=== PATIENT | female | born 1955 | race Caucasian/White ===

== ENCOUNTER → 2017-06-14 | Outpatient (CLI) | payer BC ==
[~2017-06-14] MED LIST: ADIPEX-P37.5 M1 PO; ASPIRIN E.C. 8181 MG PO; COLESTID 1GM1 G PO; MOBIC15 MG PO; MOTRIN 200200 MG/TAB PO; MULTIVITAMIN1 TA1 PO; NAPROXEN 3375 MG/TAB; NO HOME MEDICATIONS; NORCO 325 MG-7.1 TAB PO; SYNTHROID0.05 MG/TA PO; VICODIN 5/5001 UDTAB PO
== END ==
LOC: MC.RAD 10:55
DX: Z12.31 Encounter for screening mammogram for malignant neoplasm of breast (principal)

== ENCOUNTER 2018-02-24 12:56 | Inpatient (IN) | payer BC ==
[~2018-02-24] VITALS: Ht 165.1 cm; Wt 119.0 kg
[2018-04-29] VITALS (11 sets, daily range): BP systolic 96–135; BP diastolic 52–84; PULSE 70–86; TEMP 98
[2018-04-30 03:40] VITALS: BP 100/48; PULSE 60; TEMP 97.5
[2018-04-30 07:51] VITALS: BP 112/54; PULSE 65; TEMP 97.8
[2018-04-30 11:00] VITALS: BP 123/59; PULSE 74; TEMP 97.9
[2018-04-30] MEDS ORDERED: XARELTO10 MG PO (11:23)
[2018-04-30] MEDS ORDERED: NORCO 325 MG-7.1 TAB PO (11:24)
[2018-04-30] MEDS ORDERED: ROXICODONE 55 MG/TAB PO (11:25)
== END 2018-04-30 14:20 | disposition home or self-care (01) | DRG 470 ==
LOC: JCC 04-29 07:30
PROVIDERS: Orthopaedic Surgery
PROC: 0SRD0J9 Replacement of Left Knee Joint with Synthetic Substitute, Cemented, Open Approach (ICD-10-PCS; principal; 2018-04-29 13:45)
DX: M17.12 Unilateral primary osteoarthritis, left knee (principal); Z68.42 Body mass index [BMI] 45.0-49.9, adult; I48.0 Paroxysmal atrial fibrillation; E66.01 Morbid (severe) obesity due to excess calories
CPT/HCPCS: A9284; C1713; C1776; J0690; J1100; J2250; J2405; J2704; J2795; J3010; J7042; J7120

== ENCOUNTER → 2018-04-19 | Outpatient (CLI) | payer BC | LOC: COL.VAS 14:02 | DX: I48.0 Paroxysmal atrial fibrillation (principal) ==

== ENCOUNTER → 2019-06-26 | Outpatient (CLI) | payer BC ==
[~2019-06-26] MED LIST changes: +ROXICODONE 55 MG/TAB PO; +XARELTO10 MG PO
== END ==
LOC: MC.RAD 14:26
DX: Z12.31 Encounter for screening mammogram for malignant neoplasm of breast (principal); N64.89 Other specified disorders of breast

== ENCOUNTER → 2019-06-30 | Outpatient (CLI) | payer BC | LOC: MC.RAD 10:12 | DX: N64.89 Other specified disorders of breast (principal); N63.10 Unspecified lump in the right breast, unspecified quadrant; N63.20 Unspecified lump in the left breast, unspecified quadrant ==

== ENCOUNTER → 2020-02-12 | Outpatient (CLI) | payer BC | LOC: MC.RAD 07:15 | DX: Z12.31 Encounter for screening mammogram for malignant neoplasm of breast (principal) | CPT/HCPCS: G0279 ==

== ENCOUNTER → 2022-01-20 | Outpatient (CLI) | payer BC | LOC: MC.RAD 12-19 09:00 | DX: Z12.31 Encounter for screening mammogram for malignant neoplasm of breast (principal) ==

== ENCOUNTER → 2024-04-13 | Outpatient (CLI) | payer MEDICARE, BC | LOC: MC.RAD 07:40 | DX: Z12.31 Encounter for screening mammogram for malignant neoplasm of breast (principal) ==